=== PATIENT | female | born 1995 | race Two or more races ===

== ENCOUNTER 2018-04-14 04:57 | Inpatient (IN) | payer OTHER ==
[~2018-04-14] VITALS: Ht 160 cm; Wt 3.6 kg
[2018-04-14] MEDS ORDERED: PRENATAL TABLE1 EAC1 PO (05:20)
== END 2018-04-18 13:13 | DRG 788 ==
LOC: LDR 04:57 → O/R 04-15 19:56 → OB/GYN 04-15 21:46
PROVIDERS: Obstetrics & Gynecology
PROC: 10907ZC Drainage of Amniotic Fluid, Therapeutic from Products of Conception, Via Natural or Artificial Opening (ICD-10-PCS; 2018-04-14)
PROC: 3E0P7VZ Introduction of Hormone into Female Reproductive, Via Natural or Artificial Opening (ICD-10-PCS; 2018-04-14)
PROC: 3E033VJ Introduction of Other Hormone into Peripheral Vein, Percutaneous Approach (ICD-10-PCS; 2018-04-14)
PROC: 4A1HXCZ Monitoring of Products of Conception, Cardiac Rate, External Approach (ICD-10-PCS; 2018-04-14)
PROC: 10D00Z1 Extraction of Products of Conception, Low, Open Approach (ICD-10-PCS; principal; 2018-04-15 18:00)
DX: O62.1 Secondary uterine inertia (principal); O65.4 Obstructed labor due to fetopelvic disproportion, unspecified; Z3A.39 39 weeks gestation of pregnancy; Z37.0 Single live birth

== ENCOUNTER 2019-10-22 18:30 | Inpatient (IN) | payer OTHER ==
[~2019-10-22] VITALS: Ht 160 cm; Wt 92.1 kg
[~2019-10-22 18:30] MED LIST: PRENATAL TABLE1 EAC1 PO
== END 2019-10-24 16:10 | disposition home or self-care (01) | DRG 788 ==
LOC: LDR 18:30 → O/R 21:10 → OB/GYN 22:26
PROVIDERS: ADMIT Obstetrics & Gynecology; ATTEND Obstetrics & Gynecology
PROC: 4A0HXFZ Measurement of Products of Conception, Cardiac Rhythm, External Approach (ICD-10-PCS; 2019-10-22)
PROC: 10D00Z1 Extraction of Products of Conception, Low, Open Approach (ICD-10-PCS; principal; 2019-10-22 19:00)
DX: O82 Encounter for cesarean delivery without indication (principal); O34.211 Maternal care for low transverse scar from previous cesarean delivery; Z3A.37 37 weeks gestation of pregnancy; Z37.0 Single live birth